=== PATIENT | male | born 1955 | race Caucasian/White ===

== ENCOUNTER 2018-05-04 06:39 | Day surgery (SDC) | payer BC ==
[2018-05-04] MEDS: NS 1,000 ML IV (06:30)
[2018-05-04] MEDS ORDERED: PROPOFOL 200 MG/20 ML VIAL As Ordered (07:19)
[2018-05-04] MEDS ORDERED: LIDOCAINE 2% INJ 100 MG/5 ML SDV (FOR ANES.) As Ordered (07:19)
== END 2018-05-04 08:25 | disposition home or self-care (01) ==
LOC: M OPP 06:39
DX: Z12.11 Encounter for screening for malignant neoplasm of colon (principal); I10 Essential (primary) hypertension; G47.30 Sleep apnea, unspecified; E66.9 Obesity, unspecified; Z98.84 Bariatric surgery status; Z79.899 Other long term (current) drug therapy; Z80.6 Family history of leukemia
CPT/HCPCS: G0121

== ENCOUNTER 2018-11-17 15:15 | Inpatient (IN) | payer BC ==
[~2018-11-17] VITALS: Ht 167.6 cm; Wt 99.3 kg
[~2018-11-17 15:15] MED LIST: LISI-538 PO
[2018-11-17 15:43] LABS: BASO # 0.1 10^3/uL (0.0-0.2); BASO % 0.6 % (0.0-1.0); EOS # 0.1 10^3/uL (0.0-0.50); EOS % 0.9 % (0.0-3.0); HEMOGLOBIN 16.8 g/dl (13.5-17.5); LYMPH # 1.8 10^3/uL (1.5-4.5); LYMPH % 15.7 % (24.0-44.0); MEAN CORPUSCULAR HEMOGLOBIN 29.2 pg (27.0-33.0); MEAN CORPUSCULAR HGB CONC 33.6 g/dl (32.0-36.5); MEAN CORPUSCULAR VOLUME 86.8 fl (80.0-96.0); MONO # 1.3 10^3/uL (0.0-0.8); MONO % 11.1 % (0.0-5.0); NEUTROPHILS # 8.3 10^3/uL (1.8-7.7); NEUTROPHILS % 71.3 % (36.0-66.0); PLATELET COUNT, AUTOMATED 270 10^3/uL (150-450); RED BLOOD COUNT 5.76 10^6/uL (4.30-6.10); WHITE BLOOD COUNT 11.6 10^3/uL (4.0-10.0)
--- NOTE | 2018-11-17 15:53 | REP ---
Clinical: Acute chest pain . Comparison: None . Findings: The mediastinum and cardiac silhouette are stable and within normal limits for portable technique. The lung elizabeth are clear without acute consolidation, effusion, or pneumothorax. Skeletal structures are intact. Impression: No acute cardiopulmonary process appreciated. Electronically Signed by Jones Marquez MD 11/17/2018 03:45 P
[2018-11-17] MEDS ORDERED: ONDANSETRON 4MG/2ML VIAL (J2405) IV ONE (16:00)
[2018-11-17] MEDS ORDERED: MORPHINE 4 MG/ML 1ML VIAL/SYRINGE (J2270) IV ONE (16:00)
[2018-11-17 16:29] LABS: ALBUMIN 4.4 GM/DL (3.2-5.2); ALT/SGPT 897 U/L (12-78); BILIRUBIN,DIRECT 1.9 MG/DL (0.0-0.2); BILIRUBIN,TOTAL 2.3 MG/DL (0.2-1.0); BLOOD UREA NITROGEN 19 MG/DL (7-18); CALCIUM LEVEL 9.4 MG/DL (8.8-10.2); CARBON DIOXIDE LEVEL 28 MEQ/L (21-32); CHLORIDE LEVEL 105 MEQ/L (98-107); CPK CREATINE PHOSPHOKINASE 168 U/L (39-308); CREATININE FOR GFR 1.27 MG/DL (0.70-1.30); GLOMERULAR FILTRATION RATE > 60.0 (>49); GLUCOSE, FASTING 117 MG/DL (70-100); LIPASE 35645 U/L (73-393); MB/CK RELATIVE INDEX 0.95 (< OR =4); POTASSIUM SERUM 3.6 MEQ/L (3.5-5.1); SODIUM LEVEL 142 MEQ/L (136-145); TOTAL PROTEIN 7.5 GM/DL (6.4-8.2); TROPONIN I < 0.02 NG/ML (< 0.10)
[2018-11-17] MEDS ORDERED: MORPHINE 4 MG/ML 1ML VIAL/SYRINGE (J2270) IV PRN ×2 (16:30→18:00)
--- NOTE | 2018-11-17 17:36 | REP ---
Clinical: Acute right upper quadrant pain. Technique: Valdez scale ultrasound using curved array transducer. Findings: The liver is contracted and gallstones are identified, but without obvious pericholecystic fluid and no sonographic Oshea's sign elicited during examination. No biliary ductal dilatation is appreciated and the common bile duct measures 4.9 mm diameter. Liver demonstrates diffuse fatty infiltration without focal hepatic lesion. Pancreas is incompletely evaluated due to interposed bowel gas. The right kidney is normal in reniform shape without hydronephrosis and measures 11.7 x 5.7 x 4.9 cm. No ascites. Impression: Cholelithiasis without sonographic evidence for acute cholecystitis. Hepatic steatosis. Electronically Signed by Jones Marquez MD 11/17/2018 05:27 P
[2018-11-17] MEDS ORDERED: KETOROLAC 30 MG/ML VIAL (J1885) IV PRN (18:00)
[2018-11-17] MEDS ORDERED: ONDANSETRON 4MG/2ML VIAL (J2405) IV PRN (18:00)
[2018-11-17] MEDS ORDERED: PERCOCET 5MG/325MG TAB PO PRN (18:00)
[2018-11-17] MEDS ORDERED: ACETAMINOPHEN TAB 650MG DOSE (2X325MG) PO PRN (18:00)
[2018-11-17] MEDS ORDERED: VITMTA PO (18:12)
[2018-11-17] MEDS ORDERED: VITA10002 PO (18:12)
[2018-11-17] MEDS: LR 1,000 ML IV SCH (19:50)
[2018-11-17] MEDS: PANTOPRAZOLE 40MG INJ (PROTONIX) (C9113) IV SCH (19:50)
[2018-11-17 20:00] VITALS: BP 159/77
[2018-11-17] MEDS: SENOKOT S TAB PO SCH (21:41)
[2018-11-18] MEDS: LR 1,000 ML IV SCH ×4 (02:17→21:12)
[2018-11-18 05:55] LABS: BASO % 0.6 % (0.0-1.0); EOS # 0.1 10^3/uL (0.0-0.50); HEMATOCRIT 43.4 % (42.0-52.0); LYMPH # 1.2 10^3/uL (1.5-4.5); LYMPH % 18.4 % (24.0-44.0); MEAN CORPUSCULAR HEMOGLOBIN 29.4 pg (27.0-33.0); MEAN CORPUSCULAR HGB CONC 33.6 g/dl (32.0-36.5); MEAN CORPUSCULAR VOLUME 87.5 fl (80.0-96.0); MONO # 0.8 10^3/uL (0.0-0.8); MONO % 12.3 % (0.0-5.0); NEUTROPHILS # 4.5 10^3/uL (1.8-7.7); NEUTROPHILS % 67.1 % (36.0-66.0); PLATELET COUNT, AUTOMATED 208 10^3/uL (150-450); RED BLOOD COUNT 4.96 10^6/uL (4.30-6.10); WHITE BLOOD COUNT 6.8 10^3/uL (4.0-10.0)
[2018-11-18 06:00] VITALS: BP 142/100
[2018-11-18 06:12] LABS: HEMOGLOBIN 14.6 g/dl (13.5-17.5)
[2018-11-18 06:36] LABS: ALBUMIN 3.4 GM/DL (3.2-5.2); ALT/SGPT 689 U/L (12-78); AMYLASE 252 U/L (25-115); BILIRUBIN,TOTAL 1.7 MG/DL (0.2-1.0); BLOOD UREA NITROGEN 14 MG/DL (7-18); CALCIUM LEVEL 8.7 MG/DL (8.8-10.2); CARBON DIOXIDE LEVEL 29 MEQ/L (21-32); CHLORIDE LEVEL 108 MEQ/L (98-107); CREATININE FOR GFR 1.12 MG/DL (0.70-1.30); GLOMERULAR FILTRATION RATE > 60.0 (>49); GLUCOSE, FASTING 145 MG/DL (70-100); LIPASE 3826 U/L (73-393); POTASSIUM SERUM 3.6 MEQ/L (3.5-5.1); SODIUM LEVEL 143 MEQ/L (136-145); TOTAL PROTEIN 6.5 GM/DL (6.4-8.2)
[2018-11-18] MEDS: LISINOPRIL 20 MG TAB PO SCH (08:40)
[2018-11-18] MEDS: PANTOPRAZOLE 40MG INJ (PROTONIX) (C9113) IV SCH (08:41)
[2018-11-18] MEDS: SENOKOT S TAB PO SCH ×2 (08:41→20:43)
[2018-11-18] MEDS: ENOXAPARIN 40 MG/0.4 ML SYRINGE (J1650) SC SCH (08:41)
--- NOTE | 2018-11-18 09:43 | HPEPDOC ---
General Surgery H&P Date of Admission Nov 17, 2018 Attending Physician: KALA GRIFFIN MD History and Physical CHIEF COMPLAINT: abdominal pain HISTORY OF PRESENT ILLNESS: Patient presented to the emergency room on 11/17/2018 complaints of ongoing epigastric discomfort. Patient was in his usual state of health up until about early Tuesday morning when he was feeling queasy, has some vague upper abdominal discomfort which initially thought was secondary to constipation. He was able to move his bowels but did not get any relief. He went to work and towards the afternoon was feeling worse with increasing sharp epigastric pain and discomfort associated with nausea, bloating. Then he decided to go to the emergency room for evaluation. He denies any prior episodes of similar symptoms. He describes discomfort that comes and goes in a colicky fashion that starts at the epigastric area and would radiate to his back and his chest area accompanied by bouts of nausea, cold sweats, clammy skin. He has a prior history of gastric bypass. He denies any associated problems acutely or chronically with his gastric bypass status. He has no previous episodes of biliary colic type pain or postprandial abdominal pain. He denies any unexplained weight loss. He has minimal locational I'll call intake. In the emergency room he was evaluated and found to have evidence for acute pancreatitis and thus was admitted to the surgical service. ALLERGIES: Please see below. HOME MEDICATIONS: Please see below. PAST MEDICAL HISTORY: 1. History of morbid obesity status post gastric bypass. 2. Hypertension 3. Obstructive sleep apnea on BiPAP 4. History of diabetes improved with a gastric bypass. PAST SURGICAL HISTORY: 1. umbilical hernia repair open (unsure if mesh was used) 2. Laparoscopic gastric bypass 3. Left inguinal hernia repair. PERSONAL/SOCIAL HISTORY: Patient denies smoking. Reports very little occasional alcohol use. He denies any recreational drug use.. REVIEW OF SYSTEMS: GENERAL: Denies chills, fatigue, fever, weight gain and weight loss. HEENT: Denies blurred vision and double vision. Denies ear symptoms. Denies hoarseness. NECK: Denies any neck pain. CARDIOVASCULAR: Denies chest pain and palpitations. MUSCULOSKELETAL: Denies arthralgias, back pain and thrombophlebitis. SKIN: Denies rash. NEUROLOGIC: Denies headache, stroke and transient ischemic attack. PSYCHIATRIC: Denies anxiety and depression. ENDOCRINE: Denies thyroid disease. HEMATOLOGY/ONCOLOGY: Denies any bleeding or clotting disorder. HEART: Denies any chest pains, palpitations, paroxysmal dyspnea, orthopnea. PULMONARY: Denies chronic cough, dyspnea and wheezing. GASTROINTESTINAL: Patient with prior history of gastric bypass. GENITOURINARY: Denies dysuria, frequency, hematuria and nocturia. ENDOCRINE: Denies polydipsia, polyphagia, polyuria, heat or cold intolerance. INFECTIOUS: Denies any recent upper respiratory tract infection, UTI, need for use of antibiotics. NUTRITION: Reports good appetite. PHYSICAL EXAMINATION: VITAL SIGNS: Please see below. GENERAL APPEARANCE: Patient seen at bedside, appears comfortable. Awake, alert, oriented. HEENT: Normocephalic, atraumatic. [place] palpebral conjunctivae. Anicteric s clerae. Lips moist. CHEST: No chest wall abnormalities. Normal respiratory motion/effort. NECK: Supple. No thyromegaly. No lymphadenopathies. LUNGS: Lung sounds are clear to auscultation bilaterally. No wheezing appreciated. HEART: No chest wall abnormalities. Heart rate and rhythm are regular with no murmurs. ABDOMEN: Round obese abdomen, minimally distended, (+) supraumbilical hernia sli ghtly to the left and above the umbilicus, reducible, nontender on palpation, laparoscopic port sites from gastric bypass healed. Mild epigastric tenderness, slight more right upper quadrant tenderness without rebound or guarding. SKIN: Warm, moist. EXTREMITIES: Extremities have no deformities. No edema identified. NEUROLOGICAL: . ANCILLARIES: . LABORATORY DATA: Please see below. MICROBIOLOGY: Please see below. IMAGING: Gallbladder ultrasound Cholelithiasis without sonographic evidence for acute cholecystitis Hepatic steatosis IMPRESSION AND PLAN: acute nonnecrotizing pancreatitis cholelithiasis gastric bypass status JUANCARLOS on bipap abnormal LFTs Patient with symptoms and workup consistent with acute pancreatitis most likely from gallstones. He is not showing any signs of severe inflammatory response/sepsis with the pancreatitis. Most likely this will have a self limited course with clinical improvement within a day or so. For now keep him npo and place on brisk IVF hydration to prevent severe dehydration and pain control. No antibiotics necessary. Secondary issue is the mild increase in the LFTs which is common to accompany pancreatitis. most of the time this also involves a transient rise and gradual decrease in the LFTs as the stone makes its way out of the biliary tree. This may become an issue if the stone does not pass out of the biliary tree and cause progressive increase in his LFTs which normally would require an ERCP done by our brush loader and handle attacher. But given that he has a gastric bypass done, the ampulla would not be accessible with a regular ERCP and he may need to be transferred out to a tertiary center that can address this (usually a combination of carcamo sgastric access to the remnant stomach and ERCP vs open CBD exploration vs PTBD). I will monitor his LFTs and see how this trend. He may need an MRCP if there is no clear resolution Third issue is when to performa cholecystectomy to prevent recurrence. If he continues to have a self limited course of the pancreatitis, I suggested performing the procedure prior to his discharge. I would also consider doing an intraoperative cholangiogram with the cholecystectomy to evaluate the biliary tree for remnant stones. Vital Signs Vital Signs Date Time Temp Pulse Resp B/P (MAP) Pulse Ox O2 Delivery O2 Flow Rate FiO2 11/18/18 08:40 164/90 11/18/18 06:00 98.0 77 15 99 1.0 11/17/18 19:30 Room Air I&Os I&O- Last 24 Hours up to 6 AM 11/18/18 06:00 Intake Total 1400 ml Balance 1400 ml Laboratory Data Labs 24H Laboratory Tests 2 11/17/18 15:31: Immature Granulocyte % (Auto) 0.4, White Blood Count 11.6H, Red Blood Count 5.76 , Hemoglobin 16.8, Hematocrit 50.0, Mean Corpuscular Volume 86.8, Mean Corpuscular Hemoglobin 29.2, Mean Corpuscular Hemoglobin Concent 33.6, Red Cell Distribution Width 15.0H, Platelet Count 270, Neutrophils (%) (Auto) 71.3H, Lymphocytes (%) (Auto) 15.7L, Monocytes (%) (Auto) 11.1H, Eosinophils (%) (Auto) 0.9, Basophils (%) (Auto) 0.6, Neutrophils # (Auto) 8.3H, Lymphocytes # (Auto) 1.8, Monocytes # (Auto) 1.3H, Eosinophils # (Auto) 0.1, Basophils # (Auto) 0.1, Nucleated Red Blood Cells % (auto) 0.0, Anion Gap 9, Glomerular Filtration Rate > 60.0, Calcium Level 9.4, Aspartate Amino Transf (AST/SGOT) 679H, Alanine Aminotransferase (ALT/SGPT) 897H, Alkaline Phosphatase 132H, Total Bilirubin 2 .3H, Direct Bilirubin 1.9H, Total Creatine Kinase 168, Creatine Kinase MB 2.0, Creatine Kinase MB Relative Index 0.95, Troponin I < 0.02, Total Protein 7.5, Albumin 4.4, Albumin/Globulin Ratio 1.42, Lipase [id number] 11/18/18 05:25: Immature Granulocyte % (Auto) 0.6, White Blood Count 6.8, Red Blood Count 4.96, Hemoglobin 14.6#, Hematocrit 43.4, Mean Corpuscular Volume 87.5, Mean C orpuscular Hemoglobin 29.4, Mean Corpuscular Hemoglobin Concent 33.6, Red Cell Distribution Width 15.1H, Platelet Count 208, Neutrophils (%) (Auto) 67.1H, Lymphocytes (%) (Auto) 18.4L, Monocytes (%) (Auto) 12.3H, Eosinophils (%) (Auto) 1.0, Basophils (%) (Auto) 0.6, Neutrophils # (Auto) 4.5, Lymphocytes # (Auto) 1.2L, Monocytes # (Auto) 0.8, Eosinophils # (Auto) 0.1, Basophils # (Auto) 0.0, Nucleated Red Blood Cells % (auto) 0.0, Anion Gap 6L, Glomerular Filtration Rate > 60.0, Calcium Level 8.7L, Aspartate Amino Transf (AST/SGOT) 330H, Alanine Aminotransferase (ALT/SGPT) 689H, Alkaline Phosphatase 132H, Total Bilirubin 1.7H, Total Protein 6.5, Albumin 3.4#, Albumin/Globulin Ratio 1.10, Lipase 3826H, Blood Urea Nitrogen 14, Creatinine 1.12, Sodium Level 143, Potassium Level 3.6, Chloride Level 108H, Carbon Dioxide Level 29, Amylase Level 252H CBC/BMP Laboratory Tests 11/17/18 15:31 Red Blood Count 5.76, Mean Corpuscular Volume 86.8, Mean Corpuscular Hemoglobin 29.2, Mean Corpuscular Hemoglobin Concent 33.6, Red Cell Distribution Width 15.0 H, Neutrophils (%) (Auto) 71.3 H, Lymphocytes (%) (Auto) 15.7 L, Monocytes (%) (Auto) 11.1 H, Eosinophils (%) (Auto) 0.9, Basophils (%) (Auto) 0.6, Neutrophils # (Auto) 8.3 H, Lymphocytes # (Auto) 1.8, Monocytes # (Auto) 1.3 H, Eosinophils # (Auto) 0.1, Basophils # (Auto) 0.1 11/18/18 05:25 Red Blood Count 4.96, Mean Corpuscular Volume 87.5, Mean Corpuscular Hemoglobin 29.4, Mean Corpuscular Hemoglobin Concent 33.6, Red Cell Distribution Width 15.1 H, Neutrophils (%) (Auto) 67.1 H, Lymphocytes (%) (Auto) 18.4 L, Monocytes (%) (Auto) 12.3 H, Eosinophils (%) (Auto) 1.0, Basophils (%) (Auto) 0.6, Neutrophils # (Auto) 4.5, Lymphocytes # (Auto) 1.2 L, Monocytes # (Auto) 0.8, Eosinophils # (Auto) 0.1, Basophils # (Auto) 0.0, Calcium Level 8.7 L, Aspartate Amino Transf (AST/SGOT) 330 H, Alanine Aminotransferase (ALT/SGPT) 689 H, Alkaline Phosphatase 132 H, Total Bilirubin 1.7 H, Total Protein 6.5, Albumin 3.4 # Home Medications Scheduled Cyanocobalamin (Vitamin B-12) 1,000 Mcg Tab, 1,000 MCG PO DAILY, (Reported) Lisinopril (Lisinopril) 20 Mg Tab, 20 MG PO DAILY, (Reported) Multivitamins *[facility] STOCKED* (Thera M Plus *[facility] STOCKED*) 1 Tab Tab, 1 TAB PO DAILY, (Reported) Allergies Coded Allergies: No Known Allergies (Unverified , 04/27/18) KALA GRIFFIN MD Nov 18, 2018 09:01
--- NOTE | 2018-11-18 09:44 | IPNPDOC ---
Subjective General Date/Time Seen The patient was seen on 11/18/18 at 09:43. Subject Chief Complaint/History The patient is a 63-year-old male admitted with a reason for visit of Acute Pancreatitis. feels moderately better this am compared to last night but still has some mild discomfort over epigastric area/right upper quadrant area. Current Medications Current Medications Current Medications Acetaminophen (Tylenol Tab) 650 mg Q4HP PRN PO MILD PAIN or TEMP > 101; Start 11/17/18 at 18:00 Enoxaparin Sodium (Lovenox) 40 mg DAILY SC Last administered on 11/18/18at 08:41; Start 11/18/18 at 09:00 Home Med (Med Rec Complete!) ASDIRECTED XX ; Start 11/17/18 at 18:15; Stop 11/17/18 at 18:32; Status DC Ketorolac Tromethamine (ToRADol) 15 mg Q6HP PRN IV MILD/MODERATE PAIN (PS 1-7); Start 11/17/18 at 18:00; Stop 11/22/18 at 17:59 Lactated Ringer's 1,000 ml @ 150 mls/hr Q6H40M IV Last administered on 11/18/18at 08:40; Start 11/17/18 at 18:45 Lisinopril (Prinivil) 20 mg DAILY PO Last administered on 11/18/18at 08:40; Start 11/18/18 at 09:00 Morphine Sulfate (Morphine Sulfate Inj) 4 mg Q2HP PRN IV SEVERE PAIN (PS 8-10); Start 11/17/18 at 18:00 Morphine Sulfate (Morphine Sulfate Inj) 4 mg Q30M PRN IV SEVERE PAIN (PS 8-10); Start 11/17/18 at 16:30 Ondansetron HCl (ZOFRAN INJection) 4 mg Q6HP PRN IV NAUSEA OR VOMITING; Start 11/17/18 at 18:00 Oxycodone/ Acetaminophen (Percocet 5mg/ 325mg Tablet) 1 tab Q4HP PRN PO MODERATE PAIN (PS 5-7); Start 11/17/18 at 18:00 Oxycodone/ Acetaminophen (Percocet 5mg/ 325mg Tablet) 2 tab Q6HP PRN PO SEVERE PAIN (PS 8-10); Start 11/17/18 at 18:00 Pantoprazole Sodium (Protonix) 40 mg DAILY IV Last administered on 11/18/18at 08:41; Start 11/17/18 at 09:00 Senna/Docusate Sodium (Senokot S) 1 tab BID PO Last administered on 11/18/18at 08:41; Start 11/17/18 at 21:00 Allergies Coded Allergies: No Known Allergies (Unverified , 04/27/18) Objective Physical Examination Examination GENERAL APPEARANCE:looks fairly comfortable. SKIN: Warm and moist. HEENT: Normocephalic, atraumatic. [place] palpebral conjunctiva, anicteric sclerae. Lips and mucosa appear moist. NECK: Supple, no thyromegaly. No obvious jugular venous distention. LUNGS: Clear to auscultation bilaterally. No wheezing appreciated. HEART: No chest wall abnormalities. Regular rate and rhythm with no murmurs appreciated. ABDOMEN: Abdomen is round, soft, minimally distended. Mild tenderness over epigastric area, less so at the right upper quadrant area without guarding. EXTREMITIES: no edema. Vital Signs Vital Signs Date Time Temp Pulse Resp B/P (MAP) Pulse Ox O2 Delivery O2 Flow Rate FiO2 11/18/18 08:40 164/90 11/18/18 06:00 98.0 77 15 99 1.0 11/17/18 19:30 Room Air I&Os I&O- Last 24 Hours up to 6 AM 11/18/18 05:59 Intake Total 500 ml Balance 500 ml Laboratory Data Labs 24H Laboratory Tests 2 11/17/18 15:31: Immature Granulocyte % (Auto) 0.4, White Blood Count 11.6H, Red Blood Count 5.76, Hemoglobin 16.8, Hematocrit 50.0, Mean Corpuscular Volume 86.8, Mean Corpuscular Hemoglobin 29.2, Mean Corpuscular Hemoglobin Concent 33.6, Red Cell Distribution Width 15.0H, Platelet Count 270, Neutrophils (%) (Auto) 71.3H, Lymphocytes (%) (Auto) 15.7L, Monocytes (%) (Auto) 11.1H, Eosinophils (%) (Auto) 0.9, Basophils (%) (Auto) 0.6, Neutrophils # (Auto) 8.3H, Lymphocytes # (Auto) 1.8, Monocytes # (Auto) 1.3H, Eosinophils # (Auto) 0.1, Basophils # (Auto) 0.1, Nucleated Red Blood Cells % (auto) 0.0, Anion Gap 9, Glomerular Filtration Rate > 60.0, Calcium Level 9.4, Aspartate Amino Transf (AST/SGOT) 679H, Alanine Aminotransferase (ALT/SGPT) 897H, Alkaline Phosphatase 132H, Total Bilirubin 2.3H, Direct Bilirubin 1.9H, Total Creatine Kinase 168, Creatine Kinase MB 2.0, Creatine Kinase MB Relative Index 0.95, Troponin I < 0.02, Total Protein 7.5, Albumin 4.4, Albumin/Globulin Ratio 1.42, Lipase [id number] 11/18/18 05:25: Immature Granulocyte % (Auto) 0.6, White Blood Count 6.8, Red Blood Count 4.96, Hemoglobin 14.6#, Hematocrit 43.4, Mean Corpuscular Volume 87.5, Mean Corpuscular Hemoglobin 29.4, Mean Corpuscular Hemoglobin Concent 33.6, Red Cell Distribution Width 15.1H, Platelet Count 208, Neutrophils (%) (Auto) 67.1H, Lymphocytes (%) (Auto) 18.4L, Monocytes (%) (Auto) 12.3H, Eosinophils (%) (Auto) 1.0, Basophils (%) (Auto) 0.6, Neutrophils # (Auto) 4.5, Lymphocytes # (Auto) 1.2L, Monocytes # (Auto) 0.8, Eosinophils # (Auto) 0.1, Basophils # (Auto) 0.0, Nucleated Red Blood Cells % (auto) 0.0, Anion Gap 6L, Glomerular Filtration Rate > 60.0, Calcium Level 8.7L, Aspartate Amino Transf (AST/SGOT) 330H, Alanine Aminotransferase (ALT/SGPT) 689H, Alkaline Phosphatase 132H, Total Bilirubin 1.7H, Direct Bilirubin 1.0H, Total Protein 6.5, Albumin 3.4#, Albumin/Globulin Ratio 1.10, Lipase 3826H, Blood Urea Nitrogen 14, Creatinine 1.12, Sodium Level 143, Potassium Level 3.6, Chloride Level 108H, Carbon Dioxide Level 29, Amylase Level 252H CBC/BMP Laboratory Tests 11/17/18 15:31 Red Blood Count 5.76, Mean Corpuscular Volume 86.8, Mean Corpuscular Hemoglobin 29.2, Mean Corpuscular Hemoglobin Concent 33.6, Red Cell Distribution Width 15.0 H, Neutrophils (%) (Auto) 71.3 H, Lymphocytes (%) (Auto) 15.7 L, Monocytes (%) (Auto) 11.1 H, Eosinophils (%) (Auto) 0.9, Basophils (%) (Auto) 0.6, Neutrophils # (Auto) 8.3 H, Lymphocytes # (Auto) 1.8, Monocytes # (Auto) 1.3 H, Eosinophils # (Auto) 0.1, Basophils # (Auto) 0.1 11/18/18 05:25 Red Blood Count 4.96, Mean Corpuscular Volume 87.5, Mean Corpuscular Hemoglobin 29.4, Mean Corpuscular Hemoglobin Concent 33.6, Red Cell Distribution Width 15.1 H, Neutrophils (%) (Auto) 67.1 H, Lymphocytes (%) (Auto) 18.4 L, Monocytes (%) (Auto) 12.3 H, Eosinophils (%) (Auto) 1.0, Basophils (%) (Auto) 0.6, Neutrophils # (Auto) 4.5, Lymphocytes # (Auto) 1.2 L, Monocytes # (Auto) 0.8, Eosinophils # (Auto) 0.1, Basophils # (Auto) 0.0, Calcium Level 8.7 L, Aspartate Amino Transf (AST/SGOT) 330 H, Alanine Aminotransferase (ALT/SGPT) 689 H, Alkaline Phosphatase 132 H, Total Bilirubin 1.7 H, Direct Bilirubin 1.0 H, Total Protein 6.5, Albumin 3.4 # Impression Acute pancreatitis improving cholelithiasis gastric bypass status JUANCARLOS on bipap He is clinically improved at this point. I will allow him clears today. Continue to monitor LFTs for resolution of the hyperbilirubinemia. Tentatively planning to do his cholecystectomy with IOC on tuesday. Plan / VTE VTE Prophylaxis Ordered?: Yes KALA GRIFFIN MD Nov 18, 2018 09:44
[2018-11-18] MEDS: PERCOCET 5MG/325MG TAB PO PRN ×2 (10:44→20:44)
[2018-11-18 14:00] VITALS: BP 141/76
--- NOTE | 2018-11-18 14:12 | ECGEPIP ---
Stationary ECG Study [facility] - ED Test Date: 2018-11-17 Pat Name: ALTAGRACIA OCHOA Department: Room: [place] [address] Gender: M Night Auditor: ct : 1955 Requested By: Drea Meeks Order Number: [id number] Reading MD: Drea Meeks Measurements Intervals [place] Rate: 102 P: 10 CO: 164 QRS: 17 QRSD: 95 T: -1 QT: 319 QTc: 416 Interpretive Statements SINUS TACHYCARDIA NONSPECIFIC T-WAVE ABNORMALITY ABNORMAL RHYTHM ECG NO PRIOR FOR COMPARISON Electronically Signed On 11-18-2018 14:12:07 EDT by Drea Meeks
[2018-11-18 22:00] VITALS: BP 143/93
[2018-11-19] MEDS: LR 1,000 ML IV SCH (03:54)
[2018-11-19 06:00] VITALS: BP 158/90
[2018-11-19 06:02] LABS: BASO % 0.6 % (0.0-1.0); EOS # 0.1 10^3/uL (0.0-0.50); HEMATOCRIT 41.1 % (42.0-52.0); HEMOGLOBIN 13.7 g/dl (13.5-17.5); LYMPH % 15.4 % (24.0-44.0); MEAN CORPUSCULAR HEMOGLOBIN 29.6 pg (27.0-33.0); MEAN CORPUSCULAR HGB CONC 33.3 g/dl (32.0-36.5); MEAN CORPUSCULAR VOLUME 88.8 fl (80.0-96.0); MONO # 0.8 10^3/uL (0.0-0.8); MONO % 12.4 % (0.0-5.0); NEUTROPHILS # 4.4 10^3/uL (1.8-7.7); PLATELET COUNT, AUTOMATED 188 10^3/uL (150-450); RED BLOOD COUNT 4.63 10^6/uL (4.30-6.10); WHITE BLOOD COUNT 6.4 10^3/uL (4.0-10.0)
[2018-11-19 06:28] LABS: ALT/SGPT 446 U/L (12-78); BILIRUBIN,DIRECT 2.3 MG/DL (0.0-0.2); BILIRUBIN,TOTAL 3.1 MG/DL (0.2-1.0); BLOOD UREA NITROGEN 13 MG/DL (7-18); CALCIUM LEVEL 8.7 MG/DL (8.8-10.2); CARBON DIOXIDE LEVEL 28 MEQ/L (21-32); CHLORIDE LEVEL 106 MEQ/L (98-107); GLOMERULAR FILTRATION RATE > 60.0 (>49); GLUCOSE, FASTING 124 MG/DL (70-100); LIPASE 2823 U/L (73-393); POTASSIUM SERUM 3.6 MEQ/L (3.5-5.1); SODIUM LEVEL 143 MEQ/L (136-145); TOTAL PROTEIN 6.1 GM/DL (6.4-8.2)
[2018-11-19] MEDS: PANTOPRAZOLE 40MG INJ (PROTONIX) (C9113) IV SCH (09:07)
[2018-11-19 09:09] VITALS: BP 162/82
[2018-11-19] MEDS: LISINOPRIL 20 MG TAB PO SCH (09:09)
[2018-11-19] MEDS: SENOKOT S TAB PO SCH (09:09)
--- NOTE | 2018-11-19 09:59 | IPNPDOC ---
Subjective General Date/Time Seen The patient was seen on 11/19/18 at 09:44. Subject Chief Complaint/History The patient is a 63-year-old male admitted with a reason for visit of Acute Pancreatitis. He reports an episode of pain yesterday morning which was more severe than the day before after I saw him. After that he started feeling better. Currently denies any severe discomfort (minimal). Current Medications Current Medications Current Medications Acetaminophen (Tylenol Tab) 650 mg Q4HP PRN PO MILD PAIN or TEMP > 101; Start 11/17/18 at 18:00 Enoxaparin Sodium (Lovenox) 40 mg DAILY SC Last administered on 11/18/18at 08:41; Start 11/18/18 at 09:00 Home Med (Med Rec Complete!) ASDIRECTED XX ; Start 11/17/18 at 18:15; Stop 11/17/18 at 18:32; Status DC Ketorolac Tromethamine (ToRADol) 15 mg Q6HP PRN IV MILD/MODERATE PAIN (PS 1-7); Start 11/17/18 at 18:00; Stop 11/22/18 at 17:59 Lactated Ringer's 1,000 ml @ 150 mls/hr Q6H40M IV Last administered on 11/19/18 at 03:54; Start 11/17/18 at 18:45 Lisinopril (Prinivil) 20 mg DAILY PO Last administered on 11/19/18at 09:09; Start 11/18/18 at 09:00 Morphine Sulfate (Morphine Sulfate Inj) 4 mg Q2HP PRN IV SEVERE PAIN (PS 8-10); Start 11/17/18 at 18:00 Morphine Sulfate (Morphine Sulfate Inj) 4 mg Q30M PRN IV SEVERE PAIN (PS 8-10); Start 11/17/18 at 16:30 Ondansetron HCl (ZOFRAN INJection) 4 mg Q6HP PRN IV NAUSEA OR VOMITING; Start 11/17/18 at 18:00 Oxycodone/ Acetaminophen (Percocet 5mg/ 325mg Tablet) 1 tab Q4HP PRN PO MODERATE PAIN (PS 5-7); Start 11/17/18 at 18:00 Oxycodone/ Acetaminophen (Percocet 5mg/ 325mg Tablet) 2 tab Q6HP PRN PO SEVERE PAIN (PS 8-10) Last administered on 11/18/18at 20:44; Start 11/17/18 at 18:00 Pantoprazole Sodium (Protonix) 40 mg DAILY IV Last administered on 11/19/18at 09:07; Start 11/17/18 at 09:00 Senna/Docusate Sodium (Senokot S) 1 tab BID PO Last administered on 11/19/18at 09:09; Start 11/17/18 at 21:00 Allergies Coded Allergies: No Known Allergies (Unverified , 04/27/18) Objective Physical Examination Examination GENERAL APPEARANCE:[Patient seen, laying in bed, awake, alert, and oriented. Comfortable, in no acute distress]. SKIN: [Warm and moist]. HEENT: [Normocephalic, atraumatic. [place] palpebral conjunctiva, anicteric sclerae. Lips and mucosa appear moist]. NECK: [Supple, no thyromegaly. No obvious jugular venous distention]. LUNGS: [Clear to auscultation bilaterally. No wheezing appreciated]. HEART: [No chest wall abnormalities. Regular rate and rhythm with no murmurs appreciated]. ABDOMEN: Abdomen is round, soft, nondistended. Minimal tenderness on deep palpation at the epigastric area, nontender at right upper quadrant area.. EXTREMITIES: [Extremities have no deformities. No edema identified]. Vital Signs Vital Signs Date Time Temp Pulse Resp B/P (MAP) Pulse Ox O2 Delivery O2 Flow Rate FiO2 11/19/18 09:09 162/82 11/19/18 06:00 97.9 61 13 97 11/18/18 22:00 1.0 11/17/18 19:30 Room Air I&Os I&O- Last 24 Hours up to 6 AM 11/19/18 06:00 Intake Total 1560 ml Balance 1560 ml Laboratory Data Labs 24H Laboratory Tests 2 11/19/18 05:24: Immature Granulocyte % (Auto) 0.6, White Blood Count 6.4, Red Blood Count 4.63, Hemoglobin 13.7, Hematocrit 41.1L, Mean Corpuscular Volume 88.8, Mean Corpuscular Hemoglobin 29.6, Mean Corpuscular Hemoglobin Concent 33.3, Red Cell Distribution Width 15.0H, Platelet Count 188, Neutrophils (%) (Auto) 69.0H, Lymphocytes (%) (Auto) 15.4L, Monocytes (%) (Auto) 12.4H, Eosinophils (%) (Auto) 2.0, Basophils (%) (Auto) 0.6, Neutrophils # (Auto) 4.4, Lymphocytes # (Auto) 1.0L, Monocytes # (Auto) 0.8, Eosinophils # (Auto) 0.1, Basophils # (Auto) 0.0, Nucleated Red Blood Cells % (auto) 0.0, Anion Gap 9, Glomerular Filtration Rate > 60.0, Blood Urea Nitrogen 13, Creatinine 1.10, Sodium Level 143, Potassium Level 3.6, Chloride Level 106, Carbon Dioxide Level 28, Calcium Level 8.7L, Aspartate Amino Transf (AST/SGOT) 137H, Alanine Aminotransferase (ALT/SGPT) 446H, Alkaline Phosphatase 132H, Total Bilirubin 3.1#H, Direct Bilirubin 2.3H, Total Protein 6.1L, Albumin 3.0L, Albumin/Globulin Ratio 0.97L, Lipase 2823H CBC/BMP Laboratory Tests 11/19/18 05:24 Red Blood Count 4.63, Mean Corpuscular Volume 88.8, Mean Corpuscular Hemoglobin 29.6, Mean Corpuscular Hemoglobin Concent 33.3, Red Cell Distribution Width 15.0 H, Neutrophils (%) (Auto) 69.0 H, Lymphocytes (%) (Auto) 15.4 L, Monocytes (%) (Auto) 12.4 H, Eosinophils (%) (Auto) 2.0, Basophils (%) (Auto) 0.6, Neutrophils # (Auto) 4.4, Lymphocytes # (Auto) 1.0 L, Monocytes # (Auto) 0.8, Eosinophils # (Auto) 0.1, Basophils # (Auto) 0.0, Calcium Level 8.7 L, Aspartate Amino Transf (AST/SGOT) 137 H, Alanine Aminotransferase (ALT/SGPT) 446 H, Alkaline Phosphatase 132 H, Total Bilirubin 3.1 #H, Direct Bilirubin 2.3 H, Total Protein 6.1 L, Albumin 3.0 L Impression Acute gallstone pancreatitis gastric bypass status abnormal LFTs He looks more comfortable today but his labs shows increase elevation of his LFTs with the bilirubin coming up to 3.1 (direct fraction of 2.3). AST, ALT and lipase continue to come down. Issue right now is whether he is able to completely pass the stone out of the biliary tree or may need intervention. Unfortunately due to his gastric bypass status, would not be able to have a regular ERCP performed here. Considering clinically he looks comfortable, there still remains a possiblity that the stone will pass spontaneously out of the biliary tree. I will repeat his CMP labs this afternoon, get an MRCP today. I spoke to him about possiblity of need for transferring him out to a tertiary center if he will need common bile duct exploration. Plan / VTE VTE Prophylaxis Ordered?: Yes KALA GRIFFIN MD Nov 19, 2018 09:59
[2018-11-19] MEDS ORDERED: KCL 20MEQ IN D5/0.45NS 1000ML 1,000 ML IV SCH (10:00)
--- NOTE | 2018-11-19 11:05 | REP ---
Clinical: Cholelithiasis and possible choledocholithiasis. Technique: Standard noncontrast MRCP sequencing. Findings: The gallbladder is moderately distended and demonstrates innumerable small gallstones as well as a mild pericholecystic T2 signal suggesting inflammatory changes. Multiple filling defects identified in the common bile duct consistent with choledocholiths common bile duct measures approximately 8 mm maximal diameter. Very mild intrahepatic biliary ductal dilatation suggested as well. The pancreas and pancreatic duct appear normal. Small subcentimeter left renal cysts measure up to 7.5 mm. Impression: 1. Cholelithiasis and choledocholithiasis as well as mild biliary ductal dilatation and very subtle pericholecystic inflammatory stranding suggesting early acute cholecystitis. Electronically Signed by Jones Marquez MD 11/19/2018 10:57 A
[2018-11-19] MEDS: ENOXAPARIN 40 MG/0.4 ML SYRINGE (J1650) SC SCH (11:09)
[2018-11-19] MEDS: PERCOCET 5MG/325MG TAB PO PRN (11:14)
--- NOTE | 2018-11-19 12:07 | DS.PDOC ---
Discharge Summary General Date of Admission Nov 17, 2018 at 17:51 Date of Discharge November 19, 2018 Attending Physician: KALA GRIFFIN MD Discharge Summary PROCEDURES PERFORMED DURING STAY: None. ADMITTING DIAGNOSES: 1. Acute pancreatitis 2. Cholelithiasis 3. Abnormal LFTs 4. Gastric bypass status DISCHARGE DIAGNOSES: 1. Acute pancreatitis resolving 2. Cholelithiasis with choledocholithiasis 3. Abnormal LFTs 4. Gastric bypass status. COMPLICATIONS/CHIEF COMPLAINT: Acute Pancreatitis. HISTORY OF PRESENT ILLNESS: Patient presented to the emergency room on 11/17/2018 complaints of ongoing epigastric discomfort. Patient was in his usual state of health up until about early Tuesday morning when he was feeling queasy, has some vague upper abdominal discomfort which initially thought was secondary to constipation. He was able to move his bowels but did not get any relief. He went to work and towards the afternoon was feeling worse with increasing sharp epigastric pain and discomfort associated with nausea, bloating. Then he decided to go to the emergency room for evaluation. He denies any prior episodes of similar symptoms. He describes discomfort that comes and goes in a colicky fashion that starts at the epigastric area and would radiate to his back and his chest area accompanied by bouts of nausea, cold sweats, clammy skin. He has a prior history of gastric bypass. He denies any associated problems acutely or chronically with his gastric bypass status. He has no previous episodes of biliary colic type pain or postprandial abdominal pain. He denies any unexplained weight loss. He has minimal locational I'll call intake. In the emergency room he was evaluated and found to have evidence for acute pancreatitis and thus was admitted to the surgical service. HOSPITAL COURSE: Patient was admitted to the surgical service was given IV fluid for hydration and medication for pain control and nausea. He initially felt improved the following morning. His follow-up labs was not the one shows improvement of his leukocytosis, lipase levels as well as the liver function test. He continues to have intermittent bouts of severe epigastric pain on hospital day 1 but generally was able to tolerate some clear liquids. Follow-up labs the following day shows increase in the bilirubin level as well as direct bilirubin level despite all his other labs show any improvement. An MRCP was then performed and this demonstrated presence of multiple colon bile duct stones with mild intrahepatic biliary dilatation consistent with obstruction from the loose choledocholiths. Given his gastric bypass status, a regular ERCP could not be performed. Arrangements were then made to transfer him to an outside hospital that may be able to address his common bile duct stones. DISCHARGE MEDICATIONS: Please see below. ALLERGIES: Please see below. PHYSICAL EXAMINATION ON DISCHARGE: VITAL SIGNS: Please see below. GENERAL: Comfortable HEENT: Anicteric sclerae NECK: Short, supple CARDIOVASCULAR EXAMINATION: Regular heart rate and rhythm, no murmurs RESPIRATORY EXAMINATION: Clear breath sounds auscultation bilaterally with no wheezing ABDOMINAL EXAMINATION: Round, soft, nondistended, minimally tender over the epigastric area EXTREMITIES: No deformities, no edema SKIN: No jaundice NEUROLOGICAL EXAMINATION: Awake, alert, oriented LABORATORY DATA: Please see below. IMAGING: Ultrasound of the gallbladder, MRCP PROGNOSIS: Good ACTIVITY: As tolerated. DIET: Clear liquids tolerated the hospital DISCHARGE PLAN: Patient is to be transferred to [facility] [place] in the care of Dr. Sepulveda DISPOSITION: . DISCHARGE CONDITION: Stable. TIME SPENT ON DISCHARGE: Greater than 30 minutes. Vital Signs/I&Os Vital Signs Date Time Temp Pulse Resp B/P (MAP) Pulse Ox O2 Delivery O2 Flow Rate FiO2 11/19/18 11:14 18 11/19/18 09:09 162/82 11/19/18 06:00 97.9 61 97 11/18/18 22:00 1.0 11/17/18 19:30 Room Air I&O- Last 24 Hours up to 6 AM 11/19/18 06:00 Intake Total 1560 ml Balance 1560 ml Laboratory Data Labs 24H Laboratory Tests 2 11/19/18 05:24: Immature Granulocyte % (Auto) 0.6, White Blood Count 6.4, Red Blood Count 4.63, Hemoglobin 13.7, Hematocrit 41.1L, Mean Corpuscular Volume 88.8, Mean [place] uscular Hemoglobin 29.6, Mean Corpuscular Hemoglobin Concent 33.3, Red Cell Distribution Width 15.0H, Platelet Count 188, Neutrophils (%) (Auto) 69.0H, Lymphocytes (%) (Auto) 15.4L, Monocytes (%) (Auto) 12.4H, Eosinophils (%) (Auto) 2.0, Basophils (%) (Auto) 0.6, Neutrophils # (Auto) 4.4, Lymphocytes # (Auto) 1.0L, Monocytes # (Auto) 0.8, Eosinophils # (Auto) 0.1, Basophils # (Auto) 0.0, Nucleated Red Blood Cells % (auto) 0.0, Anion Gap 9, Glomerular Filtration Rate > 60.0, Blood Urea Nitrogen 13, Creatinine 1.10, Sodium Level 143, Potassium Level 3.6, Chloride Level 106, Carbon Dioxide Level 28, Calcium Level 8.7L, Aspartate Amino Transf (AST/SGOT) 137H, Alanine Aminotransferase (ALT/SGPT) 446H, Alkaline Phosphatase 132H, Total Bilirubin 3.1#H, Direct Bilirubin 2.3H, Total Protein 6.1L, Albumin 3.0L, Albumin/Globulin Ratio 0.97L, Lipase 2823H CBC/BMP Laboratory Tests 11/19/18 05:24 Red Blood Count 4.63, Mean Corpuscular Volume 88.8, Mean Corpuscular Hemoglobin 29.6, Mean Corpuscular Hemoglobin Concent 33.3, Red Cell Distribution Width 15.0 H, Neutrophils (%) (Auto) 69.0 H, Lymphocytes (%) (Auto) 15.4 L, Monocytes (%) (Auto) 12.4 H, Eosinophils (%) (Auto) 2.0, Basophils (%) (Auto) 0.6, Neutrophils # (Auto) 4.4, Lymphocytes # (Auto) 1.0 L, Monocytes # (Auto) 0.8, Eosinophils # (Auto) 0.1, Basophils # (Auto) 0.0, Calcium Level 8.7 L, Aspartate Amino Transf (AST/SGOT) 137 H, Alanine Aminotransferase (ALT/SGPT) 446 H, Alkaline Phosphatase 132 H, Total Bilirubin 3.1 #H, Direct Bilirubin 2.3 H, Total Protein 6.1 L, Albumin 3.0 L Discharge Medications Scheduled Cyanocobalamin (Vitamin B-12) 1,000 Mcg Tab, 1,000 MCG PO DAILY, (Reported) Lisinopril (Lisinopril) 20 Mg Tab, 20 MG PO DAILY, (Reported) Multivitamins *[facility] STOCKED* (Thera M Plus *[facility] STOCKED*) 1 Tab Tab, 1 TAB PO DAILY, (Reported) Allergies Coded Allergies: No Known Allergies (Unverified , 04/27/18) KALA GRIFFIN MD Nov 19, 2018 12:07
[2018-11-19 12:48] LABS: ALBUMIN 3.2 GM/DL (3.2-5.2); ALT/SGPT 427 U/L (12-78); BILIRUBIN,TOTAL 3.7 MG/DL (0.2-1.0); BLOOD UREA NITROGEN 12 MG/DL (7-18); CALCIUM LEVEL 9.2 MG/DL (8.8-10.2); CARBON DIOXIDE LEVEL 30 MEQ/L (21-32); CHLORIDE LEVEL 106 MEQ/L (98-107); CREATININE FOR GFR 1.03 MG/DL (0.70-1.30); GLOMERULAR FILTRATION RATE > 60.0 (>49); GLUCOSE, FASTING 119 MG/DL (70-100); POTASSIUM SERUM 3.7 MEQ/L (3.5-5.1); SODIUM LEVEL 141 MEQ/L (136-145); TOTAL PROTEIN 6.4 GM/DL (6.4-8.2)
== END 2018-11-19 14:03 | disposition short-term general hospital (02) | DRG 282 ==
LOC: M ED 15:15 → M ED INP 17:51 → M MSPAV 20:08
PROVIDERS: ADMIT Surgery; ATTEND Surgery
DX: K85.10 Biliary acute pancreatitis without necrosis or infection (principal); K80.70 Calculus of gallbladder and bile duct without cholecystitis without obstruction; G47.33 Obstructive sleep apnea (adult) (pediatric); I10 Essential (primary) hypertension; Z98.84 Bariatric surgery status; Z79.899 Other long term (current) drug therapy

== ENCOUNTER → 2019-01-12 | Outpatient (REF) | payer BC ==
[~2019-01-12] MED LIST changes: +VITA10002 PO; +VITMTA PO
[2019-01-12 14:30] LABS: FERRITIN 189 NG/ML (26-388); IRON (FE) 94 UG/DL (65-175)
[2019-01-12 14:38] LABS: FOLATE > 24.0 NG/ML; VITAMIN B12 LEVEL 961 PG/ML
[2019-01-17 10:42] LABS: VITAMIN A, RETINOL LEVEL 39.4 ug/dL (22.0-69.5); VITAMIN B1 LEVEL WHOLE BLOOD 162.8 nmol/L (66.5-200.0)
== END ==
LOC: M LAB REF 12:14
PROVIDERS: ATTEND Family Medicine
DX: Z98.84 Bariatric surgery status (principal)

== ENCOUNTER → 2021-09-02 | Outpatient (CLI) | payer OTHER ==
[~2021-09-02] MED LIST changes: +CYAN100049 PO; -LISI-538 PO; +LISI20TA33 PO; -VITA10002 PO
[2021-09-02 15:42] LABS: HEMATOCRIT 46.6 % (42.0-52.0); HEMOGLOBIN 15.8 g/dl (13.5-17.5); MEAN CORPUSCULAR HEMOGLOBIN 29.6 pg (27.0-33.0); MEAN CORPUSCULAR HGB CONC 33.9 g/dl (32.0-36.5); MEAN CORPUSCULAR VOLUME 87.4 fl (80.0-96.0); PLATELET COUNT, AUTOMATED 251 10^3/uL (150-450); RED BLOOD COUNT 5.33 10^6/uL (4.30-6.10); WHITE BLOOD COUNT 9.2 10^3/uL (4.0-10.0)
[2021-09-02 16:46] LABS: BLOOD UREA NITROGEN 19 MG/DL (7-18); CALCIUM LEVEL 9.8 MG/DL (8.8-10.2); CARBON DIOXIDE LEVEL 31 MEQ/L (21-32); CHLORIDE LEVEL 104 MEQ/L (98-107); CREATININE FOR GFR 1.15 MG/DL (0.70-1.30); GLOMERULAR FILTRATION RATE > 60.0 (>49); GLUCOSE, FASTING 185 MG/DL (70-100); POTASSIUM SERUM 4.4 MEQ/L (3.5-5.1); SODIUM LEVEL 141 MEQ/L (136-145)
== END ==
LOC: M LAB 14:26
PROVIDERS: ATTEND Plastic Surgery Surgery of the Hand
DX: D17.1 Benign lipomatous neoplasm of skin and subcutaneous tissue of trunk (principal)

== ENCOUNTER → 2021-10-15 | Outpatient (CLI) | payer OTHER ==
[~2021-10-15] MED LIST changes: +AMLO1TAB24 PO
== END ==
LOC: M LABSMTC 11:44
PROVIDERS: ATTEND Anesthesiology
DX: Z01.818 Encounter for other preprocedural examination (principal); Z11.52 Encounter for screening for COVID-19

== ENCOUNTER → 2021-10-16 | Outpatient (CLI) | payer OTHER | LOC: M RAD 11:31 | PROVIDERS: ATTEND Plastic Surgery Surgery of the Hand | DX: D17.1 Benign lipomatous neoplasm of skin and subcutaneous tissue of trunk (principal) ==

== ENCOUNTER 2021-10-20 06:26 | Day surgery (SDC) | payer OTHER ==
[~2021-10-20] VITALS: Ht 167.6 cm; Wt 106.6 kg
[~2021-10-20 06:26] MED LIST changes: +LIDOCAINE 1% MDV 20ML VIAL SQ PRN
[2021-10-20] MEDS ORDERED: ceFAZolin SOD 2 GM in IV 1 EA IV ONE (06:45)
[2021-10-20] MEDS ORDERED: LR 1,000 ML IV ONE (06:45)
[2021-10-20] MEDS ORDERED: LIDOCAINE 2% W/EPINEPHRINE 20ML VIAL **PRES FREE As Ordered ONE (07:10)
[2021-10-20] MEDS ORDERED: LIDOCAINE W/EPINEPHRINE 1% 20ML VIAL As Ordered ONE (07:10)
[2021-10-20] MEDS ORDERED: ROCURONIUM BROMIDE 50 MG/5 ML VIAL As Ordered ONE ×2 (07:21→08:12)
[2021-10-20] MEDS ORDERED: LIDOCAINE 2% 100MG/5ML SDV (FOR ANES.) As Ordered ONE (07:21)
[2021-10-20] MEDS ORDERED: fentaNYL 250 MCG/5 ML INJECTION As Ordered ONE (07:21)
[2021-10-20] MEDS ORDERED: ONDANSETRON 4MG/2ML VIAL As Ordered ONE (07:21)
[2021-10-20] MEDS ORDERED: dexameTHASONE 4 MG/ML 1ML VIAL (J1100 PER 1MG) As Ordered ONE (07:21)
[2021-10-20] MEDS ORDERED: propofoL 200 MG/20 ML VIAL As Ordered ONE (07:21)
[2021-10-20] MEDS ORDERED: MIDAZOLAM INJ 2MG/2ML VIAL (J2250 PER 1MG) As Ordered ONE (07:22)
[2021-10-20] MEDS ORDERED: BUPIVACAINE LIPOSOME/PF 1.3% 20ML VIAL (13.3MG/ML)(EXPAREL)(C9290 PER1MG) As Ordered ONE (07:33)
[2021-10-20] MEDS ORDERED: SUGAMMADEX SODIUM 500 MG/5 ML VIAL (BRIDION) As Ordered ONE (08:29)
[2021-10-20] MEDS ORDERED: METOCLOPRAMIDE INJ 10MG/2ML VIAL (J2765 PER 1) As Ordered ONE (08:29)
[2021-10-20] MEDS ORDERED: ACETAMINOPHEN 1000MG 100ML IV BTL (OFIRMEV) (J0131 PER 10MG) As Ordered ONE (08:32)
[2021-10-20] MEDS ORDERED: PHENYLephrine 500MCG 5ML (100MCG/ML) SYRINGE As Ordered ONE (08:43)
[2021-10-20] MEDS ORDERED: TRAM50TA2 PO (09:53)
[2021-10-20] MEDS ORDERED: oxyCODONE 5MG TAB PO PRN (10:05)
[2021-10-20] MEDS ORDERED: fentaNYL 100 MCG/2 ML INJECTION IV PRN (10:05)
[2021-10-20] MEDS ORDERED: ONDANSETRON 4MG/2ML VIAL IV PRN (10:05)
[2021-10-20] MEDS ORDERED: LR 1,000 ML IV SCH (10:05)
[2021-10-20 10:35] VITALS: BP 140/83
== END 2021-10-20 11:09 | disposition home or self-care (01) ==
LOC: M SDC 06:26
PROVIDERS: ATTEND Plastic Surgery Surgery of the Hand
DX: D17.1 Benign lipomatous neoplasm of skin and subcutaneous tissue of trunk (principal); I10 Essential (primary) hypertension; E11.9 Type 2 diabetes mellitus without complications; G47.30 Sleep apnea, unspecified; R06.83 Snoring; Z98.84 Bariatric surgery status; Z79.899 Other long term (current) drug therapy
CPT/HCPCS: 11406; 88304; C9290; J0131; J0690; J1100; J2250; J2370; J2405; J2765; J3010

== ENCOUNTER → 2021-11-06 | Outpatient (REF) | payer OTHER ==
[~2021-11-06] MED LIST changes: -LIDOCAINE 1% MDV 20ML VIAL SQ PRN; +TRAM50TA2 PO
[2021-11-06 12:16] LABS: FOLATE 21.5 NG/ML
== END ==
LOC: M LAB REF 11:47
PROVIDERS: ATTEND Family Medicine
DX: Z98.84 Bariatric surgery status (principal)

== ENCOUNTER 2021-12-11 18:49 | Inpatient (IN) | payer OTHER ==
[~2021-12-11] VITALS: Ht 167.6 cm; Wt 104.5 kg
[2021-12-11] MEDS ORDERED: ATOR1TAB19 PO (19:01)
[2021-12-11] MEDS ORDERED: BOOSTRIX/ADACEL VACCINE (DIPHTH/PERTUSS/ACELL/TETANUS) 0.5ML SYR IM ONE (20:55)
[2021-12-11] MEDS ORDERED: ONDANSETRON 4MG/2ML VIAL IV ONE (21:05)
[2021-12-11] MEDS ORDERED: MORPHINE 4 MG/ML 1ML VIAL/SYRINGE IV ONE (21:05)
[2021-12-11 21:43] LABS: BASO # 0.1 10^3/uL (0.0-0.2); BASO % 0.5 % (0.0-1.0); EOS # 0.1 10^3/uL (0.0-0.5); EOS % 0.7 % (0.0-3.0); HEMATOCRIT 43.3 % (42.0-52.0); LYMPH # 1.7 10^3/uL (1.5-5.0); LYMPH % 16.7 % (24.0-44.0); MEAN CORPUSCULAR HEMOGLOBIN 30.2 pg (27.0-33.0); MEAN CORPUSCULAR HGB CONC 34.6 g/dl (32.0-36.5); MEAN CORPUSCULAR VOLUME 87.1 fl (80.0-96.0); MONO # 0.9 10^3/uL (0.0-0.8); MONO % 8.3 % (2.0-8.0); NEUTROPHILS # 7.5 10^3/uL (1.5-8.5); NEUTROPHILS % 73.5 % (36.0-66.0); PLATELET COUNT, AUTOMATED 252 10^3/uL (150-450); RED BLOOD COUNT 4.97 10^6/uL (4.30-6.10); WHITE BLOOD COUNT 10.2 10^3/uL (4.0-10.0)
[2021-12-11] MEDS ORDERED: HOME MED LIST COMPLETE! XX SCH (21:45)
[2021-12-11 22:09] LABS: BLOOD UREA NITROGEN 16 MG/DL (7-18); CARBON DIOXIDE LEVEL 27 MEQ/L (21-32); CHLORIDE LEVEL 106 MEQ/L (98-107); CREATININE FOR GFR 1.01 MG/DL (0.70-1.30); GLOMERULAR FILTRATION RATE > 60.0 (>49); GLUCOSE, FASTING 139 MG/DL (70-100); POTASSIUM SERUM 3.8 MEQ/L (3.5-5.1); SODIUM LEVEL 139 MEQ/L (136-145)
[2021-12-11] MEDS ORDERED: MORPHINE 10 MG/ML 1ML VIAL As Ordered ONE (22:26)
[2021-12-11 22:30] LABS: RSV AMPLIFICATION NEGATIVE (NEGATIVE)
[2021-12-11] MEDS ORDERED: ACETAMINOPHEN TAB 650MG DOSE (2X325MG) PO PRN (23:05)
[2021-12-11] MEDS ORDERED: MOM 30ML SUSPENSION UDC PO PRN (23:05)
[2021-12-12] MEDS: MORPHINE 2 MG/ML 1ML VIAL IV PRN ×2 (00:16→08:18)
[2021-12-12] MEDS ORDERED: MORPHINE 10 MG/ML 1ML VIAL As Ordered ONE (00:16)
[2021-12-12] MEDS: NS 1,000 ML IV SCH ×2 (00:45→09:14)
[2021-12-12] MEDS: HEPARIN SOD (PORCINE) 5000UNITS/ML 1ML VIAL/SYRINGE SC SCH ×2 (05:59→15:35)
[2021-12-12 08:28] VITALS: BP 160/78
[2021-12-12] MEDS ORDERED: ceFAZolin SOD 2 GM in IV 1 EA IV ONE (08:30)
[2021-12-12 08:45] VITALS: BP 154/83
[2021-12-12 08:46] LABS: HEMATOCRIT 43.3 % (42.0-52.0); HEMOGLOBIN 14.5 g/dl (13.5-17.5); MEAN CORPUSCULAR HEMOGLOBIN 29.7 pg (27.0-33.0); MEAN CORPUSCULAR HGB CONC 33.5 g/dl (32.0-36.5); MEAN CORPUSCULAR VOLUME 88.5 fl (80.0-96.0); PLATELET COUNT, AUTOMATED 237 10^3/uL (150-450); RED BLOOD COUNT 4.89 10^6/uL (4.30-6.10); WHITE BLOOD COUNT 7.4 10^3/uL (4.0-10.0)
[2021-12-12] MEDS ORDERED: amLODIPine 5 MG TAB PO SCH (09:00)
[2021-12-12] MEDS ORDERED: ATORVASTATIN 10 MG TAB PO SCH (09:00)
[2021-12-12 09:10] LABS: ALBUMIN 3.8 GM/DL (3.2-5.2); ALT/SGPT 52 U/L (12-78); BILIRUBIN,TOTAL 0.9 MG/DL (0.2-1.0); BLOOD UREA NITROGEN 12 MG/DL (7-18); CALCIUM LEVEL 9.2 MG/DL (8.8-10.2); CARBON DIOXIDE LEVEL 28 MEQ/L (21-32); CHLORIDE LEVEL 107 MEQ/L (98-107); GLOMERULAR FILTRATION RATE > 60.0 (>49); GLUCOSE, FASTING 123 MG/DL (70-100); MAGNESIUM LEVEL 2.1 MG/DL (1.8-2.4); POTASSIUM SERUM 3.7 MEQ/L (3.5-5.1); SODIUM LEVEL 141 MEQ/L (136-145); TOTAL PROTEIN 7.1 GM/DL (6.4-8.2)
[2021-12-12 09:14] LABS: INR 1.08; PROTHROMBIN TIME 14.4 SECONDS (12.7-14.5)
[2021-12-12] MEDS ORDERED: ONDANSETRON 4MG/2ML VIAL As Ordered ONE (12:08)
[2021-12-12] MEDS ORDERED: propofoL 200 MG/20 ML VIAL As Ordered ONE (12:08)
[2021-12-12] MEDS ORDERED: LIDOCAINE 2% 100MG/5ML SDV (FOR ANES.) As Ordered ONE (12:08)
[2021-12-12] MEDS ORDERED: MIDAZOLAM INJ 2MG/2ML VIAL (J2250 PER 1MG) As Ordered ONE (12:08)
[2021-12-12] MEDS ORDERED: dexameTHASONE 4 MG/ML 1ML VIAL (J1100 PER 1MG) As Ordered ONE (12:08)
[2021-12-12] MEDS ORDERED: fentaNYL 100 MCG/2 ML INJECTION As Ordered ONE (12:08)
[2021-12-12] MEDS ORDERED: ceFAZolin 2 GM/D5W 50 ML IV BAG (J0690 PER 500MG) As Ordered ONE (12:35)
[2021-12-12] MEDS ORDERED: BUPIVACAINE/EPIN 0.25% 30 ML VIAL As Ordered ONE (12:56)
[2021-12-12] MEDS ORDERED: HYDROmorphone HCL 2MG/ML 1ML VIAL As Ordered ONE (13:35)
[2021-12-12] MEDS ORDERED: KETOROLAC 60MG 2ML VIAL As Ordered ONE (14:19)
[2021-12-12] MEDS ORDERED: ONDANSETRON 4MG/2ML VIAL IV PRN (15:00)
[2021-12-12] MEDS ORDERED: fentaNYL 100 MCG/2 ML INJECTION IV PRN (15:00)
[2021-12-12] MEDS ORDERED: LR 1,000 ML IV SCH (15:00)
[2021-12-12] MEDS ORDERED: oxyCODONE 5MG TAB PO PRN (15:00)
[2021-12-12] MEDS ORDERED: MORPHINE 4 MG/ML 1ML VIAL/SYRINGE IV PRN (15:00)
[2021-12-12] MEDS ORDERED: METOCLOPRAMIDE INJ 10MG/2ML VIAL (J2765 PER 1) IV PRN (15:00)
[2021-12-12 15:45] VITALS: BP 130/72
[2021-12-12 16:15] VITALS: BP 136/72
[2021-12-12] MEDS ORDERED: OXYC1TAB23 PO (17:22)
== END 2021-12-12 18:30 | disposition home or self-care (01) | DRG 563 ==
LOC: M ED 18:49 → M ED INP 23:02 → ENRESERV 12-12 08:10 → M MS5PR 12-12 08:45
PROVIDERS: ADMIT Family Medicine; ATTEND Family Medicine
DX: S52.572A Other intraarticular fracture of lower end of left radius, initial encounter for closed fracture (principal); I10 Essential (primary) hypertension; Z98.84 Bariatric surgery status; E11.9 Type 2 diabetes mellitus without complications; E78.5 Hyperlipidemia, unspecified; Z90.49 Acquired absence of other specified parts of digestive tract; Z20.822 Contact with and (suspected) exposure to COVID-19; Z79.899 Other long term (current) drug therapy; W11.XXXA Fall on and from ladder, initial encounter; Y92.009 Unspecified place in unspecified non-institutional (private) residence as the place of occurrence of the external cause; Y93.9 Activity, unspecified

== ENCOUNTER → 2021-12-18 | Outpatient (CLI) | payer OTHER ==
[~2021-12-18] MED LIST changes: +ATOR1TAB19 PO; +OXYC1TAB23 PO
== END ==
LOC: M SOG 09:40
PROVIDERS: ATTEND Orthopaedic Surgery
DX: S52.501A Unspecified fracture of the lower end of right radius, initial encounter for closed fracture (principal); Y92.9 Unspecified place or not applicable; Y93.9 Activity, unspecified; Y99.9 Unspecified external cause status

== ENCOUNTER → 2021-12-29 | Outpatient (CLI) | payer OTHER | LOC: M SOG 10:17 | PROVIDERS: ATTEND Orthopaedic Surgery | DX: Z48.817 Encounter for surgical aftercare following surgery on the skin and subcutaneous tissue (principal) ==

== ENCOUNTER → 2022-01-13 | Outpatient (CLI) | payer OTHER | LOC: M SOG 08:53 | PROVIDERS: ATTEND Orthopaedic Surgery | DX: Z48.817 Encounter for surgical aftercare following surgery on the skin and subcutaneous tissue (principal) ==

== ENCOUNTER → 2022-02-12 | Outpatient (CLI) | payer OTHER | LOC: M SOG 07:59 | PROVIDERS: ATTEND Orthopaedic Surgery | DX: Z47.89 Encounter for other orthopedic aftercare (principal) ==

== ENCOUNTER → 2023-11-14 | Outpatient (REF) | payer BC | LOC: M LAB REF 12:11 | PROVIDERS: ATTEND Family Medicine | DX: M10.9 Gout, unspecified (principal) ==

== ENCOUNTER → 2024-03-26 | Outpatient (REF) | payer BC | LOC: M LAB REF 12:30 | PROVIDERS: ATTEND Family Medicine | DX: K76.0 Fatty (change of) liver, not elsewhere classified (principal) ==

== ENCOUNTER → 2025-06-06 | Outpatient (REF) | payer BC | LOC: M LAB REF 12:33 | PROVIDERS: ATTEND Family Medicine | DX: R76.0 Raised antibody titer (principal) ==